=== PATIENT | female | born 1975 | race African-American/Black ===

== ENCOUNTER 2018-12-01 07:07 | Inpatient (IN) | payer OTHER ==
[2018-11-30 12:19] VITALS: BMI 31.8
[~2018-12-01 07:07] MED LIST: BUPIVACAINE HCL/PF (5 MG/ML) 30 ML VIAL IJ ONE
[2018-12-01] MEDS ORDERED: ROPIVACAINE HCL 0.5% 30ML VIAL ONE (07:50)
[2018-12-01] MEDS ORDERED: BUPIVACAINE HCL/PF 0.5% (5MG/ML) 10 ML VIAL ONE (07:56)
[2018-12-01] MEDS ORDERED: LIDOCAINE HCL/PF 2% SDV 5ML VIAL ONE (08:02)
[2018-12-01] MEDS ORDERED: ROCURONIUM BROMIDE 50 MG/5 ML VIAL ONE ×3 (08:02→12:37)
[2018-12-01] MEDS ORDERED: ceFAZolin SODIUM 1 GM VIAL ONE ×2 (08:02→16:52)
[2018-12-01] MEDS ORDERED: PROPOFOL 20 ML ONE ×3 (08:02→09:35)
[2018-12-01] MEDS ORDERED: MIDAZOLAM HCL 2 MG/2 ML SINGLE DOSE VIAL ONE ×2 (08:02)
[2018-12-01] MEDS ORDERED: fentaNYL CITRATE 250 MCG/5 ML VIAL ONE (08:02)
[2018-12-01] MEDS ORDERED: ceFAZolin SODIUM 1 GM VIAL IVPB ONE (09:18)
[2018-12-01] MEDS ORDERED: HYDROmorphone HCl 2 MG/ML VIAL ONE ×3 (09:34→13:14)
[2018-12-01] MEDS ORDERED: DEXAMETHASONE SOD PHOSPHATE 4 MG/1 ML VIAL ONE (09:35)
[2018-12-01] MEDS ORDERED: hydrALAZINE HCL 20 MG/ML VIAL ONE (09:50)
[2018-12-01] MEDS ORDERED: IBUPROFEN 800 MG/8 ML IJ IVPB ONE (09:59)
[2018-12-01] MEDS ORDERED: LABETALOL HCL 5 MG/1 ML (100MG/20 ML VIAL) ONE (09:59)
[2018-12-01] MEDS ORDERED: CEFAZOLIN 2 GM in DEXTROSE 5%-WATER - 100 ML IVPB ONE ×2 (10:15→17:00)
[2018-12-01] MEDS ORDERED: PHENAZOPYRIDINE HCL 100 MG TABLET (FP) PO ONE ×2 (10:15→19:15)
[2018-12-01] MEDS ORDERED: NEOSTIGMINE METHYLSULFATE 0.5 MG/ML - 10 ML MDV ONE (12:22)
[2018-12-01] MEDS ORDERED: GLYCOPYRROLATE 0.2 MG/1 ML VIAL ONE (12:22)
[2018-12-01] MEDS ORDERED: BUPIVACAINE HCL/PF (5 MG/ML) 30 ML VIAL IJ ONE (12:45)
[2018-12-01] MEDS ORDERED: HYDROmorphone HCL CARPU-JECT 2 MG/1 ML DISP.SYRIN IVPB PRN (13:12)
--- NOTE | 2018-12-01 13:35 | OP ---
Operative Note - Note: Operative Date: 12/01/18 Pre-Operative Diagnosis: Large, symptomatic uterine leiomyomata. Operation: Robotic hysterectomy converted to open; total. Orlin. soalpingectomy. Lysis of axtensive adhesions. Drainage of left ovarian cyst. Post-Operative Diagnosis: Other (+ Extensive pelvic adhesions. Left ovarian cyst.) Surgeon: Steven Gonzales [employer] Sales Manager: Jian Garvey Anesthesia: General Specimens Removed: Uterus, tubes. Estimated Blood Loss (mls): 800
--- NOTE | 2018-12-01 13:35 | SURG ---
Surgery Workers Compensation Legal Secretary Note Workers Compensation Legal Secretary: Jian Garvey PA-C Date of Service: 12/01/18 Diagnosis: Large, symptomatic uterine leiomyomata. Ovarian Cyst Procedure: Robotic bilateral salpingectomy --> converted to open abdominal hysterectomy, lysis of adhesions, left ovarian cystectomy I was present for the entirety of the operative procedure. For further detail, please refer to operative report. Visit type - Case Type Case Type: Scheduled - New patient This patient is new to me today: Yes Date on this admission: 12/01/18
[2018-12-01] MEDS ORDERED: PROMETHAZINE HCL 25 MG/1 ML VIAL ONE (14:03)
[2018-12-01] MEDS ORDERED: DEXAMETHASONE SOD PHOSPHATE 4 MG/1 ML VIAL IVPUSH PRN (14:04)
[2018-12-01] MEDS ORDERED: PROMETHAZINE HCL 25 MG/1 ML VIAL IVPB PRN (14:04)
[2018-12-01] MEDS ORDERED: HYDROmorphone HCl 2 MG/ML VIAL IVPB PRN (14:16)
[2018-12-01] MEDS: HYDROmorphone *PCA* 10MG/50ML DISP.SYRIN PCA SCH (14:55)
[2018-12-01] MEDS ORDERED: ONDANSETRON 4 MG/2 ML VIAL ONE (15:33)
[2018-12-01] MEDS: ONDANSETRON 4 MG/2 ML VIAL IVPB PRN ×2 (15:35→16:35)
[2018-12-01] MEDS ORDERED: ACETAMINOPHEN INJECTION 100 ML IVPB ONE (15:48)
[2018-12-01] MEDS ORDERED: KETOROLAC TROMETHAMINE 30 MG/1 ML VIAL ONE (15:48)
[2018-12-01] MEDS: ACETAMINOPHEN 1000 MG/100 ML VIAL (NON FORMULARY) IVPB PRN (16:00)
[2018-12-01] MEDS: LACTATED RINGERS SOLUTION 1,000 ML IV SCH ×2 (16:00→23:03)
[2018-12-02] MEDS: HYDROmorphone *PCA* 10MG/50ML DISP.SYRIN PCA SCH (01:42)
[2018-12-02] MEDS: LACTATED RINGERS SOLUTION 1,000 ML IV SCH ×2 (06:26→15:16)
[2018-12-02] MEDS: ONDANSETRON 4 MG/2 ML VIAL IVPB PRN ×2 (07:59→21:26)
--- NOTE | 2018-12-02 08:22 | PN ---
Progress Note (short form) - Note Progress Note: Post op day#1.S/P LINDA with bilateral salpingectomy under Ga with TAP bloack uneventful.Patient stable on Dilaudid PRICE CHECKER c/o pain score of 5-6/10.So will contniue PRICE CHECKER today and will f/u tomorrow.
--- NOTE | 2018-12-02 08:49 | OP ---
DATE OF OPERATION: 12/01/2018 PREOPERATIVE DIAGNOSIS: Large symptomatic uterine leiomyomata. POSTOPERATIVE DIAGNOSES: 1. Large symptomatic uterine leiomyomata. 2. Extensive pelvic adhesions. 3. Left ovarian cyst. SURGEON: Janet Harris MD SEISMOGRAPH OPERATOR HELPER: TEDDY Fry ANESTHESIA: General. PROCEDURE: 1. Robotic hysterectomy converted to open total hysterectomy, bilateral salpingectomy. 2. Lysis of extensive adhesions. 3. Drainage of left ovarian cyst. FINDINGS: Uterus approximately 20 weeks size with multiple myomas obstructing access to left uterine vessels and cervix. Extensive adhesions between omentum and left pelvic sidewall and anterior surface of the uterus. Right ovary small, scarred , with possible previous surgery. Left ovary with about 4-cm hemorrhagic ovarian cyst. Normal abdominal findings otherwise. OPERATION: Under general anesthesia in dorsal lithotomy position, medium-size VCare device was placed in the uterus under sterile conditions. Sánchez catheter was inserted. Abdomen was prepped for robotic surgery. Peritoneal cavity was entered with Veress needle through the umbilicus and insufflated with 3 L of carbon dioxide. First incision was placed in the midline about 8 cm above the umbilicus. This was 8 mm in length. Da Vitaly trocar was inserted, and under direct vision, additional 4 incisions were placed on the left and right to the umbilicus on the level of the umbilicus. On the left side in the midclavicular line, AirSeal 5-mm trocar was placed. Da Vitaly XI robot was then docked without problems. Fenestrated bipolar device connected to bipolar current was placed in arm number 1. Second bipolar fenestrated device was placed in arm number 3, and vessel sealer in arm number 4. Subsequently, the second bipolar device was replaced with robotic tenaculum. Dissection was then carried out. Adhesions were lysed robotically in a very tedious, but careful process. Right side of the uterus was exposed. Tube was identified with difficulty and dissected. It was removed from the abdomen. In spite of distorted anatomy, efforts were made to preserve right ovary, and shortened and scarified right utero-ovarian ligament was divided using vessel sealer. Right-sided round ligament was identified, divided, and broad ligament was completely dissected, exposing uterine vessels. Bladder was brought down on the right side. Uterine vessels were coagulated and divided on the right side. In spite of efforts including transvaginal palpation, cervix was very difficult to identify, and multiple myomas in the lower part of the uterus as well as laterally were obstructing the access. Attention was then turned to the left side. Left ovarian cyst was drained, and bleeding was secured. Left utero-ovarian ligament was also identified with difficulty, was attached very high to the fundus, and was divided using vessel sealer. Left fallopian tube was resected and sent as a specimen after retrieving from the abdomen. Further dissection on the left side was complicated with myomas, poor visibility, and increased bleeding. Access to the left uterine vessel plexus was virtually impossible, and cervix was still not identified. Neither was VCare ring. At that point, with fairly significant blood loss and time of the surgery as well as risks of proceeding robotically, decision was made to convert to the open procedure. Abdomen was opened through small Pfannenstiel incision, and incision was carried transversely through subcutaneous tissue and fascia. The fascia was dissected off the rectus muscles that were . Peritoneum was entered and opened vertically. Large uterus was again visualized and removed above the level of the incision with great deal of difficulty. With uterus out of the abdomen, access to the left uterine vessels became much easier. Uterine vessels were clamped, divided, and suture ligated with Vicryl 1. Bilaterally, clamping was done on both sides of the cervix until all vascular connections were interrupted and secured with Vicryl sutures. Fundus was amputated, and stump of the cervix was held with sweetheart clamps. It was elevated, and cardinal and uterosacral ligaments were clamped, divided, and suture ligated with the same Vicryl sutures. Vaginal vault was entered sharply anteriorly, and cervix was excised. Modified Te Jori Vicryl 1 sutures were placed at the vaginal angle and affected good suspension by tying it to uterosacral and cardinal stumps. Remnants of the vaginal vault were closed with mattress Vicryl 1 sutures. Pelvis was lavaged. Hemostasis was attended to meticulously until it was completely dry. Surgicel was placed in the raw area of dissection. Count at that point was reported as correct. Abdomen was closed in layers. Peritoneum was closed with PDS 2-0 running suture. Fascia was closed with continuous running Vicryl 1 suture. Subcutaneous layer was approximated with V-Loc 3-0 sutures, and the same suture was used for subcuticular closure of the uterus. Laparoscopic incisions were also closed and secured with Dermabond. Dermabond dressing was placed on the Pfannenstiel incision as well. Patient remained stable throughout the surgery. Estimated blood loss was 800 mL. With sterile dressing in place, patient was transferred to the PACU in stable condition. MD FELI ECKERT/[id number] MTDD
[2018-12-02] MEDS: KETOROLAC TROMETHAMINE 30 MG/1 ML VIAL IVPUSH PRN ×3 (09:13→21:19)
[2018-12-02 09:50] LABS: HEMOGLOBIN 9.2 GM/dL (10.7-15.3); MCH 29.3 pg (25.7-33.7); MCHC 34.2 g/dl (32.0-36.0); MEAN CELL VOLUME 85.8 fl (80-96); MEAN PLT VOLUME 8.9 fl (7.5-11.1); PLATELET COUNT 261 K/MM3 (134-434); RBC 3.15 M/mm3 (3.60-5.2); RDW 14.1 % (11.6-15.6); WHITE BLOOD COUNT 12.4 K/mm3 (4.0-10.0)
--- NOTE | 2018-12-02 11:06 | PN ---
Progress Note (short form) - Note Progress Note: POD # 1. VSS. Pt. is doing well. Pain is under control. Surgery fully discussed. Hct 27. PE: ok. Abd. soft. BS pos. All incisions clean and dry. No extremities and CVA tenderness. I/P: Good recovery. Stable. Reg. diet. Shower. Abdominal binder. Anticipating discharge tomorrow.
--- NOTE | 2018-12-02 11:14 | PN ---
Progress Note (short form) - Note Progress Note: 43yo F s/p robotic assisted hysterectomy converted to open POD 1, pt seen and examined at bedside. Pt states she has been having pain, but it has been controlled. Pt also complains of n/v overnight, but has since resolved. Pt states she had her weinberg removed about 2 hours ago, but has yet to urinate. Pt denies fever, chills. Complains of some mild vaginal bleeding. Last Vital Signs Temp Pulse Resp BP Pulse Ox 98.2 F 85 20 145/57 L 99 12/02/18 06:00 12/02/18 06:00 12/02/18 06:00 12/02/18 06:00 12/01/18 21:00 CBC, BMP 12/02/18 08:42 PE: Gen: A&O X3 Resp: breathing comfortably Abd: soft, nondistended, mild diffuse abd tenderness, incisions are clean with no erythema or discharge. Ext: no edema Problem List - Problems (1) S/P hysterectomy Assessment/Plan: Plan -will DC CON[employer] PRO[employer] MGR -adv diet -emphasize OOB/ambulate -continue trial of void, til this afternoon. Code(s): Z90.710 - ACQUIRED ABSENCE OF BOTH CERVIX AND UTERUS
[2018-12-02] MEDS: ACETAMINOPHEN 1000 MG/100 ML VIAL (NON FORMULARY) IVPB PRN (23:59)
[2018-12-03] MEDS: LACTATED RINGERS SOLUTION 1,000 ML IV SCH ×2 (00:02→07:41)
[2018-12-03] MEDS: SIMETHICONE 80 MG TAB.CHEW (FP) PO PRN ×2 (00:09→08:49)
[2018-12-03] MEDS: KETOROLAC TROMETHAMINE 30 MG/1 ML VIAL IVPUSH PRN ×2 (02:59→08:49)
[2018-12-03] MEDS: ACETAMINOPHEN 1000 MG/100 ML VIAL (NON FORMULARY) IVPB PRN (07:20)
--- NOTE | 2018-12-03 08:31 | PN ---
Progress Note (short form) - Note Progress Note: POD 2, s/p Robotic hysterectomy converted to open; total. Orlin. salpingectomy. Lysis of extensive adhesions. Drainage of left ovarian cyst. Pt seen and examined. Tearful at the time of evaluation stating she had an unpleasant night and had great difficulty obtaining pain medications from night RN. Requesting early AM discharge. Reports pain is a 4/10 currently. Has been oob to the restroom without issue. Tolerating PO. Denies cp/sob, n/v/d, calf pain/edema. Vital Signs Temp 98.9 F 12/03/18 06:00 Pulse 99 H 12/03/18 06:00 Resp 20 12/03/18 06:00 BP 163/92 12/03/18 06:00 Pulse Ox 99 12/01/18 21:00 Intake & Output 12/02/18 12/02/18 12/03/18 11:59 23:59 11:59 Intake Total 1250 60 1500 Output Total 1000 1000 900 Balance 250 -940 600 Intake: IV 1000 1500 Lactated Ringers Solution 1000 1500 1,000 ml @ 125 mls/hr IV ASDIR JUDE Rx#: [id number] Oral 250 Oral Supplement 60 Output: Urine 1000 1000 900 Sánchez 1000 300 Void 700 900 Other: Voiding Method Toilet Toilet Bowel Movement No Yes No PE: Gen: A&O X3, tearful relaying evening's events Resp: breathing comfortably on RA Abd: soft, nondistended, mild diffuse abd tenderness, incisions are clean with no erythema or discharge, dermabond intact. Ext: no edema, no tenderness A/P: 43 y/o F w/ PMHx depression, leiomyomas, now POD 2, s/p Robotic hysterectomy converted to open; total. Orlin. salpingectomy. Lysis of extensive adhesions. Drainage of left ovarian cyst. Afebrile, VSS. P: Plan for d/c this AM above d/w attending Dr Manriquez
[2018-12-03] MEDS ORDERED: QUEtiapine FUMARATE 50 MG TABLET PO SCH (08:37)
[2018-12-03] MEDS ORDERED: SERTRALINE HCL 50 MG TABLET (FP) PO SCH (10:00)
[2018-12-03 10:18] VITALS: BP 142/87; PULSE 85; TEMP 96.6
--- NOTE | 2018-12-03 16:24 | PATH ---
Surgical Pathology Report Patient Name: FARHAD SIMPSON [facility] [place]. Rec. #: [id number] /Age/Gender: 1975 (Age: 43) / F Account: [id number] Location: [facility] MED/SURG Taken: 12/01/2018 Received: 12/02/2018 Reported: 12/03/2018 Physicians: Steven Gonzales MD Specimen(s) Received A: RIGHT FALLOPIAN TUBE B: LEFT FALLOPIAN TUBE C: UTERUS,CERVIX AND FIBROIDS D: OMENTUM Clinical History Uterine fibroids, pelvic pain, vaginal bleeding Final Diagnosis A. FALLOPIAN TUBE, RIGHT, SALPINGECTOMY: UNREMARKABLE FALLOPIAN TUBE (INCLUDING FIMBRIATED END AND FULL LUMINAL PORTION). B. FALLOPIAN TUBE, LEFT, SALPINGECTOMY: FALLOPIAN TUBE WITH PARATUBAL CYST (INCLUDING FIMBRIATED END AND FULL LUMINAL PORTION). C. UTERUS, CERVIX, AND FIBROIDS, OPEN ABDOMINAL HYSTERECTOMY: 1335 G. SUBSEROSAL AND INTRAMURAL LEIOMYOMA(TA). SECRETORY ENDOMETRIUM. UNREMARKABLE CERVIX. D. OMENTAL ADHESIONS, EXCISION: DENSE FIBROUS ADHESIONS AND BENIGN OMENTAL ADIPOSE TISSUE. Electronically Signed Clarita Zamudio M.D. Gross Description A. Received in formalin labeled "right fallopian tube," is a 5 cm in length fimbriated fallopian tube. The outer surface is aceves-harry and smooth. Sectioning reveals an unremarkable lumen. [employer] Specialist sections are submitted in 2 cassettes as follows: 1-fimbria; 2-cross sections of fallopian tube. B. Received in formalin labeled "left fallopian tube," are 2 portions of fallopian tube measuring 0.5 and 2.5 cm in length. The shorter portion displays attached fimbria. The outer surfaces are aceves-harry and smooth. Sectioning reveals unremarkable lumen. Also received within the same container is a 0.6 cm greatest dimension intact cyst. [employer] Specialist sections are submitted in 3 cassettes as follows: 1-fimbria; 2-cyst; 3-cross sections of fallopian tube. C. Received in formalin labeled "uterus, cervix and fibroids," is a 1335 g supracervically amputated uterus with no attached adnexa. The specimen measures 16 cm from superior to inferior, 14 cm from left to right and 12.5 cm from anterior to posterior. The cervix is separately received within the same container. The serosa is aceves-harry with abundant bulging and pedunculated subserosal nodules. The endometrial cavity measures 8.5 cm in length and 2.5 cm from cornu to cornu. The endometrium is red and averages 0.1 cm in thickness. The myometrium displays abundant intramural nodules, measuring up to 5.5 cm in greatest dimension. The cut surface of the subserosal and intramural nodules is aceves and rubbery with whorled architecture. No areas of hemorrhage or necrosis are identified. The remaining myometrium is aceves-pink and measures up to 6.5 cm in thickness. The separately received cervix measures 1.7 cm in length and averages 3.0 cm in diameter. The ectocervix is aceves, smooth and glistening. The endocervix is unremarkable. [employer] Specialist sections are submitted in 12 cassettes as follows: 0-5-drbmthmfzdrfip; 5-6-cervix; 7-6-zgiohzpwbr nodules; 5-84-ceqoijhleb nodules. D. Received in formalin labeled "omental adhesions," is a 4.0 x 2.4 x 0.5 cm portion of fibromembranous tissue with attached fat, consistent with adhesions. [employer] Specialist sections are submitted in one cassette. 12/02/2018 [facility]12/02/2018
== END 2018-12-03 10:29 | disposition home or self-care (01) | DRG 519 ==
LOC: JASUSAT 07:07 → EDSTATUS 08:00 → JSAMEDAYSX 13:03 → J8W 17:43
PROVIDERS: ADMIT Specialist; ATTEND Specialist
PROC: 0DNW0ZZ Release Peritoneum, Open Approach (ICD-10-PCS; 2018-12-01)
PROC: 0U910ZZ Drainage of Left Ovary, Open Approach (ICD-10-PCS; 2018-12-01)
PROC: 8E0W0CZ Robotic Assisted Procedure of Trunk Region, Open Approach (ICD-10-PCS; 2018-12-01)
PROC: 0DNU0ZZ Release Omentum, Open Approach (ICD-10-PCS; 2018-12-01)
PROC: 0UT90ZZ Resection of Uterus, Open Approach (ICD-10-PCS; principal; 2018-12-01 09:00)
PROC: 0UB70ZZ Excision of Bilateral Fallopian Tubes, Open Approach (ICD-10-PCS; 2018-12-01 09:00)
DX: D25.1 Intramural leiomyoma of uterus (principal); N83.202 Unspecified ovarian cyst, left side; N73.6 Female pelvic peritoneal adhesions (postinfective); Z53.31 Laparoscopic surgical procedure converted to open procedure; E66.9 Obesity, unspecified; Z68.31 Body mass index [BMI] 31.0-31.9, adult; F32.9 Major depressive disorder, single episode, unspecified
CPT/HCPCS: 36415; 74018-TC-FY; 84702; 85027; 86850; 86900; 86901; 88302-TC; 88305-TC; 88307-TC; 94760; J0131